=== PATIENT | female | born 1950 | race Caucasian/White ===

== ENCOUNTER 2020-09-14 10:00 | Outpatient (CLI) | payer MEDICARE, BC ==
--- NOTE | 2020-09-14 11:59 | ULT ---
Exam: Soft tissue ultrasound HISTORY: Left shoulder area of palpation x4 years Comparison none TECHNIQUE: Targeted sonographic imaging left shoulder is performed. Static images of the region of co ncern are submitted for interpretation FINDINGS: There is no evidence of a mass or cyst collection. Muscle echotexture is identified. IMPRESSION: No radiographic abnormality. If there is persistent concern, consider left shoulder MRI w hich is a better imaging modality to assess the soft tissues and musculature.
== END 2020-09-14 10:01 | disposition home or self-care (01) ==
LOC: BICULT 10:00
PROVIDERS: ATTEND Nurse Practitioner Family
DX: R22.32 Localized swelling, mass and lump, left upper limb (principal)
CPT/HCPCS: 76999